=== PATIENT | female | born 1955 | race Caucasian/White ===

== ENCOUNTER 2017-12-15 16:38 | Emergency (ER) | payer BC ==
[~2017-12-15] VITALS: Ht 172.7 cm; Wt 77.2 kg
[2017-12-15 17:45] LABS: BASOPHILS % (AUTO) 0.6 % (0-1); EOSINOPHILS # (AUTO) 0.1 X10'3 (0-0.9); EOSINOPHILS % (AUTO) 2.1 % (0-6); HEMATOCRIT 44.8 % (35.0-45.0); HEMOGLOBIN 15.5 g/dl (12.0-16.0); LYMPHOCYTES # (AUTO) 2.2 X10'3 (1.1-4.8); LYMPHOCYTES % (AUTO) 37.4 % (21-51); MEAN CORPUSCULAR HEMOGLOBIN 32.3 PG (27.0-31.0); MEAN CORPUSCULAR HGB CONC 34.6 % (33.0-36.5); MEAN CORPUSCULAR VOLUME 93.4 FL (78-98); MEAN PLATELET VOLUME 8.2 FL (7.4-10.4); MONOCYTES # (AUTO) 0.4 X10'3 (0-0.9); MONOCYTES % (AUTO) 7.2 % (2-12); NEUTROPHILS # (AUTO) 3.1 X10'3 (1.8-7.7); NEUTROPHILS % (AUTO) 52.7 % (42-75); PLATELET COUNT 307 X10'3 (140-440); RED CELL DISTRIBUTION WIDTH 13.4 % (11.5-14.5); WHITE BLOOD COUNT 5.9 X10'3 (4.5-11.0)
[2017-12-15 17:50] LABS: PARTIAL THROMBOPLASTIN TIME 26 SECONDS (22-32); PROTHROMBIN TIME 10.2 SECONDS (9.0-12.0)
[2017-12-15 18:01] LABS: ALANINE AMINOTRANSFERASE 37 U/L (12-78); ALBUMIN 4.4 G/DL (3.4-5.0); ALBUMIN/GLOBULIN RATIO 1.3 (1.1-1.5); ALKALINE PHOSPHATASE 87 IU/L (46-116); ANION GAP 7 (8-16); ASPARTATE AMINO TRANSFERASE 25 U/L (10-37); BILIRUBIN,TOTAL 0.4 MG/DL (0.1-1.0); BLOOD UREA NITROGEN 20 MG/DL (7-18); CALCIUM 9.3 MG/DL (8.5-10.1); CHLORIDE 103 MMOL/L (99-107); GLUCOSE 99 MG/DL (70-104); POTASSIUM 3.4 MMOL/L (3.5-5.1); SODIUM 143 MMOL/L (135-145); TOTAL CARBON DIOXIDE 32.8 MMOL/L (24-32); TOTAL PROTEIN 7.9 G/DL (6.4-8.2); eGFR 72 ML/MIN
[2017-12-15] MEDS ORDERED: LIDOcaine Viscous 15ml cup PO ONE (20:25)
[2017-12-15] MEDS ORDERED: mag hydrox/Alum hydrox/simeth 30ml oral suspension PO ONE (20:25)
[2017-12-15] MEDS ORDERED: sucralfate 1 gm tablet PO ONE (20:25)
[2017-12-15] MEDS ORDERED: FAMO40TA73 PO (21:15)
[2017-12-15 21:37] VITALS: BP 162/97
== END 2017-12-15 21:41 | disposition home or self-care (01) ==
LOC: ER 16:38
DX: R07.89 Other chest pain (principal); R10.13 Epigastric pain; Z88.5 Allergy status to narcotic agent
CPT/HCPCS: 36415; 71046; 80053; 84484; 85025; 85610; 85730; 93005; 99285

== ENCOUNTER 2022-07-22 11:26 | Day surgery (SDC) | payer MEDICARE, BC ==
[2022-07-17 08:31] LABS: EOSINOPHILS # (AUTO) 0.2 X10'3 (0-0.9); EOSINOPHILS % (AUTO) 5.2 % (0-6); HEMATOCRIT 45.8 % (35.0-45.0); HEMOGLOBIN 15.6 g/dl (12.0-16.0); LYMPHOCYTES # (AUTO) 1.7 X10'3 (1.1-4.8); LYMPHOCYTES % (AUTO) 45.1 % (21-51); MEAN CORPUSCULAR HEMOGLOBIN 32.1 PG (27.0-31.0); MEAN CORPUSCULAR VOLUME 94.6 FL (78-98); MEAN PLATELET VOLUME 8.6 FL (7.4-10.4); MONOCYTES # (AUTO) 0.3 X10'3 (0-0.9); MONOCYTES % (AUTO) 7.1 % (2-12); NEUTROPHILS # (AUTO) 1.6 X10'3 (1.8-7.7); NEUTROPHILS % (AUTO) 41.6 % (42-75); PLATELET COUNT 268 X10'3 (140-440); RED BLOOD COUNT 4.84 X10'6 (4.20-5.60); WHITE BLOOD COUNT 3.8 X10'3 (4.5-11.0)
[2022-07-17 08:40] LABS: APTT 32 SECONDS (22-32)
[2022-07-17 08:43] LABS: ALBUMIN 3.9 G/DL (3.4-5.0); ANION GAP 7 (8-16); BLOOD UREA NITROGEN 14 MG/DL (7-18); BUN/CREATININE RATIO 16.1 (6.6-38.0); CALCIUM 9.3 MG/DL (8.5-10.1); CHLORIDE 107 MMOL/L (99-107); CREATININE 0.87 MG/DL (0.40-0.90); GLUCOSE 100 MG/DL (70-104); POTASSIUM 4.1 MMOL/L (3.5-5.1); SODIUM 144 MMOL/L (135-145); TOTAL CARBON DIOXIDE 30.3 MMOL/L (24-32); eGFR 65 ML/MIN
[~2022-07-22] VITALS: Ht 172.7 cm; Wt 79.2 kg
[2022-07-22] VITALS (8 sets, daily range): BP systolic 100–128; BP diastolic 69–87
[~2022-07-22 11:26] MED LIST: FAMO40TA73 PO
[2022-07-22] MEDS ORDERED: normal saline 1000ml 1,000 ML IV SCH (11:45)
[2022-07-22] MEDS ORDERED: MIDAZolam 1mg/ml 10ml vial IV ONE (11:45)
[2022-07-22] MEDS ORDERED: fentaNYL/PF 50MCG/1 ML 2ML syringe IV ONE (11:45)
[2022-07-22] MEDS ORDERED: GLUCOSAMINE/CHONDR PO (12:45)
[2022-07-22] MEDS ORDERED: LACT1CAP65 PO (12:45)
[2022-07-22] MEDS ORDERED: LEVO50TA PO (12:45)
[2022-07-22] MEDS ORDERED: ASCO500C12 PO (12:45)
[2022-07-22] MEDS ORDERED: ZINC PO (12:45)
[2022-07-22] MEDS ORDERED: RED600CA2 PO (12:45)
[2022-07-22] MEDS ORDERED: OMEPRAZOLE PO (12:45)
[2022-07-22] MEDS ORDERED: APIX5TAB3 PO (12:45)
[2022-07-22] MEDS ORDERED: COQ10 PO (12:45)
[2022-07-22] MEDS ORDERED: AMIO200T61 PO (12:45)
[2022-07-22] MEDS ORDERED: CALC-1099 PO (12:45)
[2022-07-22] MEDS ORDERED: MAGNESIUM PO (12:45)
[2022-07-22] MEDS ORDERED: OMEG-79 PO (12:45)
== END 2022-07-22 14:55 | disposition home or self-care (01) ==
LOC: SSTAY O 11:26
PROVIDERS: ATTEND Student in an Organized Health Care Education/Training Program
DX: I48.19 Other persistent atrial fibrillation (principal); E03.9 Hypothyroidism, unspecified; Z79.899 Other long term (current) drug therapy; Z88.6 Allergy status to analgesic agent; Z98.890 Other specified postprocedural states
CPT/HCPCS: 36415; 80048; 85025; 85610; 85730; 92960; 93005; J2250; J3010; J7030; A4620